=== PATIENT | male | born 1990 ===

== ENCOUNTER → 2018-07-22 | Outpatient (CLI) | payer OTHER ==
--- NOTE | 2018-07-22 12:43 | Diagnostic Imaging Report ---
PROCEDURE: CT abdomen and pelvis without contrast. TECHNIQUE: Multiple contiguous axial images were obtained through the abdomen and pelvis without the use of intravenous contrast. INDICATION: Left lower quadrant abdominal pain for two months. Study is performed to evaluate for abdominal wall hernia. COMPARISON: No prior studies are available for comparison. FINDINGS: The lung bases are clear. The liver and gallbladder are unremarkable. The pancreas and spleen are unremarkable. No adrenal mass is detected. No renal calculi are identified. There is no hydronephrosis. The aorta is non-aneurysmal. There is some hazy density to the central retroperitoneum. There are several slightly prominent lymph nodes in the central retroperitoneum in the left periaortic location. A left lymph node at the level of the renal vasculature on the left measures 15 mm x 8 mm. No mesenteric lymphadenopathy is identified. No iliac lymphadenopathy is seen. There are mildly prominent inguinal lymph nodes bilaterally. The small and large bowel loops are normal caliber. There is no ascites. The appendix is visualized and unremarkable. Bladder is unremarkable. No abdominal wall defect or hernia is identified. IMPRESSION: 1. Essentially unremarkable noncontrast CT of the abdomen and pelvis with the exception of hazy density to the central retroperitoneum with several mildly prominent lymph nodes present. There is also mildly prominent lymph nodes in the inguinal regions bilaterally. Features are nonspecific. While this could be on a reactive basis, other etiologies cannot be entirely excluded. Followup would be recommended to confirm stability. 2. No abdominal wall defect or hernia is identified. Dictated by: Dictated on workstation # [id number]
== END ==
LOC: RAD 12:11
PROVIDERS: ATTEND Internal Medicine
DX: K66.8 Other specified disorders of peritoneum (principal); R10.32 Left lower quadrant pain
CPT/HCPCS: 74176